=== PATIENT | male | born 1990 | race African-American/Black ===

== ENCOUNTER 2024-08-13 22:42 | Emergency (ER) | payer MEDICAID ==
[~2024-08-13] VITALS: Ht 177.8 cm; Wt 81.6 kg
[2024-08-13 23:08] LABS: BASOPHILS % (AUTO) 0.5 % (0.0-2.0); DIFFERENTIAL COMMENT 1; EOSINOPHILS # (AUTO) 0.2 K/uL (0.0-0.7); EOSINOPHILS % (AUTO) 2.5 % (0.0-7.0); HEMATOCRIT 39.3 % (36.7-47.1); HEMOGLOBIN 13.8 g/dL (12.5-16.3); LYMPHOCYTES % (AUTO) 35.5 % (20.5-51.5); MEAN CORPUSCULAR HGB CONC 35 g/dL (32.5-36.3); MEAN CORPUSCULAR VOLUME 93.7 fL (73.0-96.2); MONOCYTES # (AUTO) 0.6 K/uL (0.1-1.30); MONOCYTES % (AUTO) 7.6 % (0.0-11.0); NEUTROPHILS # (AUTO) 4.5 K/uL (1.8-8.9); NEUTROPHILS % (AUTO) 53.9 % (38.5-71.5); PLATELET COUNT (AUTO) 293 K/uL (152-348); RED BLOOD CELL COUNT(AUTO) 4.19 MIL/uL (4.06-5.63); RED CELL DISTRIBUTION WIDTH 12.1 % (12.1-16.2); WHITE BLOOD COUNT (AUTO) 8.4 K/uL (3.6-10.2)
[2024-08-13] MEDS ORDERED: NALOXONE HCL 0.4 MG/ML AMPUL ONE ×2 (23:13→23:15)
[2024-08-13 23:24] LABS: CALCIUM 8.1 mg/dL (8.5-10.1); POTASSIUM 3.3 mmol/L (3.5-5.1)
[2024-08-13] MEDS: NALOXONE HCL 0.4 MG/ML AMPUL IV ONE (23:33)
[2024-08-13 23:39] LABS: ALBUMIN 3.5 g/dL (3.4-5.0); BILIRUBIN,TOTAL 0.4 mg/dL (0.2-1.0); TOTAL PROTEIN, SERUM 7.2 g/dL (6.4-8.2)
[2024-08-14 00:03] LABS: ABG BASE EXCESS -6.3 mmol/L (-2.0-3.0); ABG HCO3 21.3 mmol/L (21.0-28.0); ABG PCO2 50.6 mmHg (35.0-48.0); ABG PH 7.243 (7.350-7.450); ABG PO2 69.4 mmHg (83.0-108.0); ABG SITE RIGHT RADIAL; ABG TOTAL HEMOGLOBIN 14.9 G/dL (13.5-17.5); AaDO2 90.8 mmHg; COHb 2.4 % (0.5-1.5); MetHb 0.3 % (0.0-1.5); O2Hb 88.5 % (94.0-98.0)
[2024-08-14] MEDS ORDERED: POTASSIUM CHLORIDE 50 ML ONE ×2 (00:18→01:44)
[2024-08-14] MEDS: POTASSIUM CHLORIDE 50 ML IV SCH (00:20)
[2024-08-14 01:43] LABS: *BILIRUBIN,URIN NEGATIVE (NEGATIVE); *BLOOD, URINE 1+ (NEGATIVE); *CLARITY,URINE CLEAR (CLEAR); *COLOR,URINE YELLOW (YELLOW); *KETONES,URINE TRACE (NEGATIVE); *PROTEIN,URINE 2+ (NEGATIVE); *UROBILINOGEN,URINE 0.2 E.U./dl (NORMAL); LEUKOCYTE ESTERASE ,URINE NEGATIVE (NEGATIVE); NITRITE, URINE NEGATIVE (NEGATIVE); UGLUCOSE NEGATIVE (NEGATIVE)
[2024-08-14] MEDS: IV NS 1000 ML 1,000 ML IV ONE ×2 (01:45→03:30)
[2024-08-14 01:50] LABS: *AMPHETAMINE, URINE NEGATIVE (NEGATIVE); *BARBITURATE, URINE NEGATIVE (NEGATIVE); *BENZODIAZEPINE, URINE NEGATIVE (NEGATIVE); *CANNABINOID, URINE POSITIVE (NEGATIVE); *COCCAINE, URINE NEGATIVE (NEGATIVE); *OPIATE, URINE NEGATIVE (NEGATIVE); *PHENCYCLIDINE SCREEN,URINE NEGATIVE (NEGATIVE); FENTANYL, URINE POSITIVE (NEGATIVE)
[2024-08-14 02:16] LABS: BACTERIA,URINE MODERATE /HPF (NONE SEEN); SQUAMOUS EPITHELIAL CELL,UR MODERATE /HPF (NONE SEEN); WBC,URINE 0-3 /HPF (0-3)
[2024-08-14 03:44] LABS: ABG BASE EXCESS -2.3 mmol/L (-2.0-3.0); ABG HCO3 26.7 mmol/L (21.0-28.0); ABG PCO2 64.8 mmHg (35.0-48.0); ABG PH 7.233 (7.350-7.450); ABG PO2 108.3 mmHg (83.0-108.0); ABG SITE LEFT RADIAL; ABG TOTAL HEMOGLOBIN 14.7 G/dL (13.5-17.5); AaDO2 96.9 mmHg; COHb 1.3 % (0.5-1.5); MetHb 0.4 % (0.0-1.5); O2Hb 95.7 % (94.0-98.0)
[2024-08-14] MEDS ORDERED: ONDANSETRON 4 MG/2 ML VIAL ONE (07:28)
[2024-08-14] MEDS: ONDANSETRON 4 MG/2 ML VIAL IV ONE (07:30)
[2024-08-14 07:52] LABS: ABG BASE EXCESS -4.7 mmol/L (-2.0-3.0); ABG HCO3 22.3 mmol/L (21.0-28.0); ABG PCO2 48.5 mmHg (35.0-48.0); ABG SITE RIGHT RADIAL; ABG TOTAL HEMOGLOBIN 14.2 G/dL (13.5-17.5); AaDO2 98.2 mmHg; MetHb 0.3 % (0.0-1.5); O2Hb 97.3 % (94.0-98.0)
[2024-08-14] MEDS ORDERED: ACETAMINOPHEN 500 MG TABLET ONE (12:12)
[2024-08-14 13:03] VITALS: BP 116/68; O2SAT 97
== END 2024-08-14 12:55 | disposition home or self-care (01) ==
LOC: ER 22:51
DX: F19.20 Other psychoactive substance dependence, uncomplicated (principal); R56.9 Unspecified convulsions
CPT/HCPCS: 80053; 83880; 85025; 84484; 36415 ×2; 71045; 70450; 93005 ×2; 99285; 96374; 80320; 80307; 36600 ×6; 81001; 82803 ×3; 96361; 96375; 83605; 87086; J2310; J2405; J3480 ×2; J7040 ×2; A4606; A4663; A9150; G0480